=== PATIENT | male | born 1980 | race American Indian/Alaskan Native ===

== ENCOUNTER 2018-11-17 14:31 | Emergency (ER) | payer OTHER ==
[2018-11-17 14:47] VITALS: BP 147/100
--- NOTE | 2018-11-17 14:47 | Emergency Department Report ---
Blank Doc - Documentation Documentation: This is a 38-year-old male that presents with psoriasis flareup. Patient also stated has generalized pain which was diagnosed with seronegative rheumatoid arthritis. This initial assessment/diagnostic orders/clinical plan/treatment(s) is/are subject to change based on patient's health status, clinical progression and re- assessment by fellow clinical providers in the ED. Further treatment and workup at subsequent clinical providers discretion. Patient/guardians urged not to elope from the ED as their condition may be serious if not clinically assessed and managed. Initial orders include: 1- Patient sent to [facility] for further evaluation and treatment
[2018-11-17 16:25] LABS: Basophils % (Auto) 0.7 % (0.0-1.8); Eosinophils # (Auto) 0.3 K/mm3 (0.0-0.4); Eosinophils % (Auto) 4.6 % (0.0-4.3); Hematocrit 50.3 % (35.5-45.6); Hemoglobin 16.5 gm/dl (11.8-15.2); Lymphocytes # (Auto) 1.9 K/mm3 (1.2-5.4); Mean Corpuscular HGB Conc 33 % (32-34); Mean Corpuscular Volume 88 fl (84-94); Monocytes # (Auto) 0.6 K/mm3 (0.0-0.8); Monocytes % (Auto) 9.8 % (0.0-7.3); Platelet Count 325 K/mm3 (140-440); Red Cell Distribution Width 14.3 % (13.2-15.2)
--- NOTE | 2018-11-17 16:31 | Emergency Department Report ---
HPI - HPI HPI: Pt returned to the ER from outside. Educated on discharge plan of care. He is requesting muscle relaxers because he does not want to use ETOH to relax. His skin condition makes him tense as he describes it. In [place] he was on medical THC- explained to pt [place] is different. He then wanted stronger pain med- encouraged to use motrin which he states he is immune to. Pt given numerous option for follow- we reviewed each of them. Pt discharged home, ambulatory and in no acute distress. <CAREY MOORE - Last Filed: 11/17/18 17:34> - HPI HPI: 38-year-old male presents to the emergency department with a complaint of exacerbation of his cutaneous psoriasis and psoriatic arthritis. The patient has developed small itchy and slightly painful plaques along his legs with right greater than left. He also complains of some pain to the joints with some swelling, especially in the hands. He has not taken anything for his symptoms prior to presentation. He denies any fever, chest pain, shortness of breath. He does not have a primary care physician, public information director or a sports trainer. No recent travel or sick contacts at home. <HANNAH DOUGLAS S - Last Filed: 11/23/18 08:16> - General Chief Complaint: Pain General Time Seen by Provider: 11/17/18 14:44 ED Past Medical Hx <CAREY MOORE - Last Filed: 11/17/18 17:34> - Past Medical History Previous Medical History?: Yes Additional medical history: psoriasis - Surgical History Past Surgical History?: No - Social History Smoking Status: Current Some Day Smoker Substance Use Type: Alcohol <HANNAH DOUGLAS - Last Filed: 11/23/18 08:16> - Medications Home Medications: Home Medications Medication Instructions Recorded Confirmed Last Taken Type Ibuprofen 800 mg PO Q8H PRN #20 tablet 11/17/18 Unknown Rx Triamcinolone 0.1% [Kenalog 0.1% 1 applic TP TID #1 tube 11/17/18 Unknown Rx CREAM] ED Review of Systems ROS: Stated complaint: BODY PAIN Other details as noted in HPI <CAREY MOORE - Last Filed: 11/17/18 17:34> ROS: Stated complaint: BODY PAIN Other details as noted in HPI Comment: All other systems reviewed and negative Constitutional: denies: chills, fever Eyes: denies: eye pain, vision change ENT: denies: ear pain, throat pain Respiratory: denies: cough, shortness of breath Cardiovascular: denies: chest pain, palpitations Gastrointestinal: denies: abdominal pain, vomiting Genitourinary: denies: dysuria, discharge Musculoskeletal: joint swelling, arthralgia Skin: rash, lesions Neurological: denies: headache, weakness, numbness <HANNAH DOUGLAS S - Last Filed: 11/23/18 08:16> Physical Exam - Physical Exam Vital Signs: Vital Signs 11/17/18 14:45 Temperature 97.7 F Pulse Rate 106 H Respiratory 16 Rate Blood Pressure 147/100 O2 Sat by Pulse 97 Oximetry <CAREY MOORE - Last Filed: 11/17/18 17:34> - Physical Exam Vital Signs: Vital Signs 11/17/18 14:45 Temperature 97.7 F Pulse Rate 106 H Respiratory 16 Rate Blood Pressure 147/100 O2 Sat by Pulse 97 Oximetry Physical Exam: GENERAL: The patient is well-developed well-nourished. HEENT: Normocephalic. Atraumatic. Patient has moist mucous membranes. EYES: Extraocular motions are intact. Pupils are equal and reactive to light bilaterally. NECK: Supple. Trachea is midline. CHEST/LUNGS: Clear to auscultation. There is no respiratory distress noted. HEART/CARDIOVASCULAR: Regular. There is no tachycardia. There is no obvious murmur. ABDOMEN: Abdomen is soft, nontender. Patient has normal bowel sounds. There is no abdominal distention. SKIN: There is some non-pitting swelling to the bilateral hands, worst in the left thumb and some of the PIP joints. There are multiple raised, scaly white lesions to the bilateral lower extremities, right greater than left, consistent with psoriasis. NEURO: The patient is awake, alert, and oriented. The patient is cooperative. The patient has no focal neurologic deficits. The patient has normal speech. MUSCULOSKELETAL: There is no tenderness or deformity. There is no evidence of acute injury. <HANNAH DOUGLAS S - Last Filed: 11/23/18 08:16> ED Course Vital Signs 11/17/18 14:45 Temperature 97.7 F Pulse Rate 106 H Respiratory 16 Rate Blood Pressure 147/100 O2 Sat by Pulse 97 Oximetry <CAREY MOORE - Last Filed: 11/17/18 17:34> Vital Signs 11/17/18 14:45 Temperature 97.7 F Pulse Rate 106 H Respiratory 16 Rate Blood Pressure 147/100 O2 Sat by Pulse 97 Oximetry <HANNAH DOUGLAS - Last Filed: 11/23/18 08:16> ED Medical Decision Making - Lab Data Result diagrams: 11/17/18 16:13 11/17/18 16:13 <URIELLAMARCAREY A - Last Filed: 11/17/18 17:34> - Lab Data Result diagrams: 11/17/18 16:13 11/17/18 16:13 - Medical Decision Making Patient presents with the complaint of cutaneous psoriasis and psoriatic arthritis. The patient's labs are mostly unremarkable. He was given a prescription for anti-inflammatories and a steroid cream. Studies of shown that systemic steroids in this type of patient can sometimes lead to pustular psoriasis and therefore I will be avoided. He was given a referral for primary care and rheumatology and dermatology. He will return to the ER for any worsening of his symptoms or any acute distress. <STELLAHANNAH Steiner - Last Filed: 11/23/18 08:16> Critical care attestation.: If time is entered above; I have spent that time in minutes in the direct care of this critically ill patient, excluding procedure time. <URIELLAMARCAREY Ángela - Last Filed: 11/17/18 17:34> Critical care attestation.: If time is entered above; I have spent that time in minutes in the direct care of this critically ill patient, excluding procedure time. <STELLAHANNAH Steiner - Last Filed: 11/23/18 08:16> ED Disposition <REZAObduliaRoblesCAREY DE LOS SANTOS Ángela - Last Filed: 11/17/18 17:34> Is pt being admited?: No Time of Disposition: 17:08 <HANNAH DOUGLAS Obdulia - Last Filed: 11/23/18 08:16> Clinical Impression: Psoriasis, Psoriatic arthritis, Drug-seeking behavior Disposition: DC- TO HOME OR SELFCARE Condition: Stable Instructions: Psoriasis (ED), Arthralgia (ED) Prescriptions: Ibuprofen 800 mg PO Q8H PRN #20 tablet PRN Reason: Pain , Severe (7-10) Triamcinolone 0.1% [Kenalog 0.1% CREAM] 1 applic TP TID #1 tube Referrals: DEXTER ALVARADO MD [Staff Physician] - 3-5 Days LORE HDZ MD [Referring] - 3-5 Days OZË HADDAD MD [Staff Physician] - 3-5 Days
[2018-11-17 16:43] LABS: BUN/Creatinine Ratio 8; Blood Urea Nitrogen 9 mg/dL (9-20); Calcium 9.7 mg/dL (8.4-10.2); Hemolysis Index 46
== END 2018-11-17 17:31 | disposition home or self-care (01) ==
LOC: ED 14:31
DX: L40.9 Psoriasis, unspecified (principal); L40.50 Arthropathic psoriasis, unspecified; Z76.5 Malingerer [conscious simulation]
CPT/HCPCS: 36415; 80048; 83735; 85025